=== PATIENT | female | born 1975 | race Caucasian/White ===

== ENCOUNTER 2022-12-17 12:08 | Outpatient (CLI) | payer BC | END 2022-12-17 12:09 | disposition home or self-care (01) | LOC: CSHLAB 12:08 | PROVIDERS: ATTEND Obstetrics & Gynecology | DX: Z01.818 Encounter for other preprocedural examination (principal); N92.0 Excessive and frequent menstruation with regular cycle; Z80.41 Family history of malignant neoplasm of ovary | CPT/HCPCS: 93005; 93010 ==